=== PATIENT | male | born 1990 | race Caucasian/White ===

== ENCOUNTER 2018-04-21 07:12 | Emergency (ER) | payer MEDICAID ==
[~2018-04-21] VITALS: Ht 188 cm; Wt 88.5 kg
--- NOTE | 2018-04-22 14:45 | EKG ---
[facility] [address] [facility] [place] [address] Signed Normal sinus rhythm with sinus arrhythmia Normal ECG No previous ECGs available Confirmed by JIMBO MCCRAY MD ([id number] on 04/22/2018 2:45:45 PM Electronically Signed By: JIMBO MCCRAY MD 04/22/18 1445 PATIENT NAME: TANIKA KEBEDE Electrocardiogram DATE OF : [birth year] PHYSICIAN: JIMBO MCCRAY MD REPORT #: [id number] REPORT IS CONFIDENTIAL AND NOT TO BE RELEASED WITHOUT AUTHORIZATION
== END 2018-04-21 09:14 | disposition home or self-care (01) ==
LOC: ED 07:12
DX: F41.9 Anxiety disorder, unspecified (principal); R07.89 Other chest pain
CPT/HCPCS: 80053; 84484; 85025; 93005; 93010; 99285